=== PATIENT | female | born 1980 | race Caucasian/White ===

== ENCOUNTER → 2019-12-16 | Outpatient (CLI) | payer BC ==
--- NOTE | 2019-12-18 19:18 | MR ---
EXAMINATION TYPE: MR cervical spine wo/w con DATE OF EXAM: 12/16/2019 COMPARISON: NONE HISTORY: 39-year-old female G58.9, M54.2, neck pain and right upper extremity radiculopathy. Headache s. Technique: Multiplanar, multisequence images of the cervical spine were obtained before and after adm inistration of 13 mL intravenous Gadavist gadolinium contrast. FINDINGS: No craniocervical junction abnormalities, predental space widening, or prevertebral soft tissue swell ing. No suspicious bone marrow replacement. Preserved alignment of the cervical spine but with straightening of the normal cervical lordosis. Degenerative disc desiccation throughout the cervical spine with mild diffuse disc bulging especially lower cervical spine. Scattered mild facet degenerative changes noted. Normal course, caliber, and signal intensity of the cervical spinal cord. No abnormal enhancement wit hin the spinal canal. At C2-C3, no spinal canal or neural foraminal stenosis. At C3-C4, mild facet arthropathy without canal or foraminal stenosis. At C4-C5, mild facet arthropathy without canal or foraminal stenosis. At C5-C6, broad-based posterior disc bulge with mild facet arthropathy. There is mild right neurofora frederic stenosis. Mild narrowing of the spinal canal with the disc bulge impressing on the ventral thec al sac. No cord abutment or cord flattening. At C6-C7, broad-based posterior disc bulge with mild facet degenerative change. Mild right neuroforam inal narrowing. Mild overall narrowing of the spinal canal without cord abutment or cord flattening. At C7-T1, mild facet arthropathy without significant canal or foraminal stenosis. No prevertebral or paravertebral soft tissue abnormality seen. IMPRESSION: 1. Mild degenerative disc disease greatest at C5-C6 and C6-C7. Scattered mild facet arthropathy. 2. Changes result in mild right-sided neuroforaminal stenosis at C5-C6 and C6-C7. 3. Posterior disc bulges also contribute to mild narrowing of the spinal canal at both of these level s but without any cord abutment or cord flattening. No high-grade canal compromise.
== END | disposition home or self-care (01) ==
LOC: RADMRIMAIN 18:26
PROVIDERS: ATTEND Family Medicine
DX: M48.02 Spinal stenosis, cervical region (principal); M50.222 Other cervical disc displacement at C5-C6 level; M50.322 Other cervical disc degeneration at C5-C6 level
CPT/HCPCS: 72156; A9585

== ENCOUNTER → 2020-10-05 | Outpatient (CLI) | payer BC ==
--- NOTE | 2020-10-05 16:01 | XR ---
EXAM TYPE: LUMBAR SPINE X RAY SERIES COMPARISON: NONE HISTORY: Pain TECHNIQUE: 4 views are submitted. FINDINGS: Alignment is anatomic. The pedicles are intact. The transverse processes are intact. There is mult ilevel hypertrophic and degenerative change. Multilevel facet arthropathy. Degenerative disc disease most marked at L3-L4. Calcification overlying the right kidney could be related to a 3 mm renal stone . IMPRESSION: 1. Degenerative disc disease as discussed above. 2. Possible small 3 mm right renal stone.
== END | disposition home or self-care (01) ==
LOC: RADXRYALE 15:09
PROVIDERS: ATTEND Family Medicine
DX: M51.36 Other intervertebral disc degeneration, lumbar region (principal)
CPT/HCPCS: 72110

== ENCOUNTER → 2020-10-08 | Outpatient (CLI) | payer BC ==
--- NOTE | 2020-10-08 22:41 | MR ---
EXAMINATION TYPE: MR knee RT wo con DATE OF EXAM: 10/08/2020 COMPARISON: None. HISTORY: Right lateral knee pain, locking, and swelling for 1+ years. TECHNIQUE: Multiplanar, multisequence imaging of the right knee is performed without IV contrast. FINDINGS: MEDIAL MENISCUS: Anterior and posterior horns are intact without tear. LATERAL MENISCUS: Anterior horn has abnormal triangular increased signal abutting inferior articular surface sagittal image 24. Posterior horn is truncated with abnormal vertical signal sagittal image 2 3. Tear extension into the central body is present. CRUCIATE LIGAMENTS: The anterior and posterior cruciate ligaments are intact and unremarkable. COLLATERAL LIGAMENTS: The medial collateral ligament and lateral collateral ligament complex are inta ct and unremarkable. EXTENSOR MECHANISM: Visualized quadriceps and patellar tendons are intact. EFFUSION: There is moderate-sized suprapatellar joint effusion. POPLITEAL CYST: No popliteal/pérez cyst. TRICOMPARTMENT SPACES: Mild narrowing inferior patellofemoral compartment. Mild narrowing with mild s purring lateral and medial tibiofemoral compartments. 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 No full-thickness cartilaginous loss. BONE MARROW SIGNAL: Some heterogeneity consistent with red marrow reconversion. No suspicious edema. OTHER: No additional significant abnormality is appreciated. IMPRESSION: 1. Complex full-thickness tear posterior horn of lateral meniscus extending into central body. Additi onal full-thickness tear anterior horn lateral meniscus. 2. Mild to moderate tricompartment degenerative changes somewhat pronounced for patient's chronologic age. 3. Moderate-size suprapatellar joint effusion.
== END | disposition home or self-care (01) ==
LOC: RADMRIMAIN 17:59
PROVIDERS: ATTEND Family Medicine
DX: M23.351 Other meniscus derangements, posterior horn of lateral meniscus, right knee (principal); M17.11 Unilateral primary osteoarthritis, right knee; M25.461 Effusion, right knee

== ENCOUNTER → 2021-06-03 | Outpatient (CLI) | payer BC ==
[~2021-06-03] MED LIST: SODIUM CHLORIDE 0.9% 50 ML IVPB ONE; SODIUM CHLORIDE 0.9% 500 ML 500 ML in EMPTY BAG 1 BAG IV PRN; SOTROVIMAB (EUA) 500 MG in SODIUM CHLORIDE 0.9% 100 ML IVPB ONE
[2021-06-03 14:33] VITALS: RESP 18
[2021-06-03 15:24] VITALS: BP 115/62; PULSE 77; TEMP 97.7
== END ==
LOC: PROCWHC3 13:42
PROVIDERS: ATTEND Family Medicine
DX: U07.1 COVID-19 (principal); E66.9 Obesity, unspecified; Z68.39 Body mass index [BMI] 39.0-39.9, adult
CPT/HCPCS: 96360; Q0247; M0247

== ENCOUNTER → 2022-10-09 | Outpatient (CLI) | payer BC ==
--- NOTE | 2022-10-09 14:44 | XR ---
EXAMINATION TYPE: XR ankle complete RT DATE OF EXAM: 10/09/2022 COMPARISON: NONE HISTORY: Pain FINDINGS: Three views of the ankle demonstrate the ankle mortise to be intact and symmetric. The joint spaces are preserved. The osseous structures are intact. Soft tissue calcifications are seen anteriorly an d there is a moderate-sized plantar calcaneal spur IMPRESSION: 1. No definite acute fracture or dislocation, if symptoms persist follow-up study in 7 to 10 days wou ld be suggested.
--- NOTE | 2022-10-09 14:46 | XR ---
EXAMINATION TYPE: XR foot complete RT DATE OF EXAM: 10/09/2022 COMPARISON: NONE HISTORY: Pain TECHNIQUE: Three views are submitted. FINDINGS: The osseous structures are intact. There is no acute fracture or dislocation. Joint spaces are p reserved. Moderate size calcaneal spur. IMPRESSION: 1. No acute fracture or dislocation. If symptoms persist, follow-up exam in 7 to 10 days could be ob tained.
== END | disposition home or self-care (01) ==
LOC: RADXRYALE 13:28
PROVIDERS: ATTEND Physician Assistant Medical
DX: M25.571 Pain in right ankle and joints of right foot (principal); M79.671 Pain in right foot